=== PATIENT | male | born 1985 | race Caucasian/White ===

== ENCOUNTER 2017-02-05 18:28 | Emergency (ER) | payer OTHER ==
[~2017-02-05] VITALS: Ht 188 cm; Wt 111.0 kg
[2017-02-05] MEDS ORDERED: ULTRAM50 MG PO (21:11)
[2017-02-05] MEDS ORDERED: MOTRIN600 MG PO (21:11)
[2017-02-05 21:30] VITALS: BP 00/00
== END 2017-02-05 21:32 | disposition home or self-care (01) ==
LOC: EME 18:28
DX: S00.83XA Contusion of other part of head, initial encounter (principal); S00.31XA Abrasion of nose, initial encounter; S00.219A Abrasion of unspecified eyelid and periocular area, initial encounter; S20.319A Abrasion of unspecified front wall of thorax, initial encounter; Y08.02XA Assault by strike by baseball bat, initial encounter; Y92.810 Car as the place of occurrence of the external cause; F17.200 Nicotine dependence, unspecified, uncomplicated
CPT/HCPCS: 70450; 70486; 73030; 99281; 99284